=== PATIENT | female | born 1960 | race Caucasian/White ===

== ENCOUNTER → 2016-07-13 | Outpatient (CLI) | payer BC ==
--- NOTE | 2016-07-14 11:52 | MM ---
Reason for exam: screening (asymptomatic). Last mammogram was performed 1 year and 8 months ago. History: Patient is postmenopausal. Family history of breast cancer in grandmother. Benign excisional biopsy of the right breast. Physical Findings: A clinical breast exam by your physician is recommended on an annual basis and results should be correlated with mammographic findings. MG 3D Screening Mammo W/Cad Bilateral CC and MLO view(s) were taken. Prior study comparison: November 01, 2014, right breast MG work up mamm w CAD RT. October 30, 2014, bilateral MG screening mammo w CAD. The breast tissue is heterogeneously dense. This may lower the sensitivity of mammography. There is chronic nodularity. There is no dominant lesion. No significant changes when compared with prior studies. ASSESSMENT: Benign, BI-RAD 2 RECOMMENDATION: Routine screening mammogram of both breasts in 1 year.
== END | disposition home or self-care (01) ==
LOC: RADMAMWWP 16:36
PROVIDERS: ATTEND Obstetrics & Gynecology
DX: Z12.31 Encounter for screening mammogram for malignant neoplasm of breast (principal)
CPT/HCPCS: 77063; G0202

== ENCOUNTER → 2017-12-16 | Outpatient (CLI) | payer BC | END | disposition home or self-care (01) | LOC: LABWHC1 09:56 | PROVIDERS: ATTEND Internal Medicine Cardiovascular Disease | DX: R00.2 Palpitations (principal) | CPT/HCPCS: 36415; 84443 ==

== ENCOUNTER → 2018-05-10 | Outpatient (CLI) | payer BC ==
--- NOTE | 2018-05-11 11:03 | MM ---
Reason for exam: screening (asymptomatic). Last mammogram was performed 1 year and 10 months ago. History: Patient is postmenopausal. Family history of breast cancer in grandmother. Benign excisional biopsy of the right breast. Physical Findings: A clinical breast exam by your physician is recommended on an annual basis and results should be correlated with mammographic findings. MG 3D Screening Mammo W/Cad Bilateral CC and MLO view(s) were taken. Prior study comparison: July 13, 2016, bilateral MG 3d screening mammo w/cad. November 01, 2014, right breast MG work up mamm w CAD RT. The breast tissue is heterogeneously dense. This may lower the sensitivity of mammography. There is no discrete abnormality. No significant changes when compared with prior studies. ASSESSMENT: Negative, BI-RAD 1 RECOMMENDATION: Routine screening mammogram of both breasts in 1 year.
== END ==
LOC: RADMAMWWP 11:17
PROVIDERS: ATTEND Obstetrics & Gynecology
DX: Z12.31 Encounter for screening mammogram for malignant neoplasm of breast (principal)
CPT/HCPCS: 77063; 77067

== ENCOUNTER → 2018-05-18 | Outpatient (CLI) | payer BC | LOC: LABWHC1 10:25 | PROVIDERS: ATTEND Otolaryngology | DX: J30.89 Other allergic rhinitis (principal) | CPT/HCPCS: 36415 ==

== ENCOUNTER → 2018-06-16 | Outpatient (CLI) | payer BC ==
--- NOTE | 2018-06-16 15:57 | PN ---
PROGRESS NOTE DATE OF SERVICE: 06/16/2018 57-year-old lady who has [facility] of severe obstructive sleep apnea-hypopnea syndrome. The patient continued to use her CPAP equipment every night for the whole night basically without significant problems. After she was started on treatment with CPAP, she does not have any more headaches nor episodes of acid reflux while she is in bed, which she has had a significant level before treatment on CPAP. [place] Sleepiness Scale today is 5, which is normal. I checked the patient's CPAP unit. CPAP pressure is 17 cm of water. The patient does not have any problem with tolerating pressure. Usage is every night more than 4 hours, average usage is 7.8 hours. Quite high leak 38 L/minute, but at the same time, absolutely normal apnea-hypopnea index from the 0.6. Recently, patient was found to have significant amount of PVC, but cardiac testing including EKG, stress test was negative for any significant abnormalities. MEDICATIONS: Esomeprazole, Venlafaxine, amlodipine, losartan, levothyroxine, metoprolol, losartan, hydrochlorothiazide, pravastatin, vitamin D3. PHYSICAL EXAM: lady without distress. BP 167/82, HR 80, RR 16, height 5 feet and 0, weight 247 pounds. Body mass index 48.2. The patient weight he is 2 pounds more than during the previous visit. Temperature 98.3. Oxygen saturation in room air 96%. Oropharynx: Small oropharyngeal air space Mallampati 3. Neck Supple, no JVD. Thyroid is not palpable. LUNGS Clear to percussion and to auscultation. Good air exchange. No wheezing or rhonchi. HEART S1, S2 regular. No murmurs, gallops, or rubs. ABDOMEN: Obese. Soft and nontender. Bowel sounds are present. No organomegaly appreciated. EXTREMITIES No clubbing or cyanosis. EQUIPMENT OPERAT0R Awake, alert, and oriented X3. Cranial nerves 2 to 7 intact. There is no fasciculation or atrophy. noted. No focal deficits observed. IMPRESSION: 1. Severe obstructive sleep apnea-hypopnea syndrome on full control with CPAP. The patient demonstrated 100% compliance with treatment benefitting from treatment. 2. Hypertension. 3. History of premature ventricular contractions. 4. History of acid reflux. 5. Hyperlipidemia. 6. History of headaches in the past before starting to use CPAP. 7. History of fibromyalgia. 8. Status post cholecystectomy. 9. History of carpal tunnel syndrome, status post surgical treatment on the left side. PLAN: 1. Patient will continue to use CPAP equipment every night for the whole night. 2. Losing weight. 3. Sleep hygiene with regular time in bed for at least 8 hours. 4. We will maintain all necessary prescriptions for CPAP supplies including mask, tube, filters. 5. Losing weight. 6. Followup visit in 1 year. Thank you very much for allowing me to participate in the management of your patient. Sincerely, Venkata Clay MD, PhD, FAASM Diplomat of [place] [employer] [place] [employer] Speech Scientist of [facility] [place] MMODL / RAFAN: [id number] /
== END ==
LOC: SLEEP 13:48
PROVIDERS: ATTEND Internal Medicine
DX: G47.33 Obstructive sleep apnea (adult) (pediatric) (principal); I10 Essential (primary) hypertension; K21.9 Gastro-esophageal reflux disease without esophagitis; E78.5 Hyperlipidemia, unspecified; R51 Headache; M79.7 Fibromyalgia; I49.3 Ventricular premature depolarization; Z90.49 Acquired absence of other specified parts of digestive tract; Z98.890 Other specified postprocedural states; Z99.89 Dependence on other enabling machines and devices; Z79.899 Other long term (current) drug therapy

== ENCOUNTER → 2018-07-13 | Outpatient (CLI) | payer BC ==
[2018-07-13 13:35] LABS: Basophils # (A) 0.1 k/uL (0-0.2); Basophils % (A) 1 %; Eosinophils # (A) 0.4 k/uL (0-0.7); Eosinophils % (A) 4 %; HCT 39.7 % (34.0-46.0); HGB 12.2 gm/dL (11.4-16.0); Hypochromasia Moderate; Lymphocytes # (A) 2.2 k/uL (1.0-4.8); Lymphocytes % (A) 24 %; MCH 25.2 pg (25.0-35.0); MCHC 30.8 g/dL (31.0-37.0); MCV 81.8 fL (80.0-100.0); Mean Platelet Volume 8.4; Monocytes # (A) 0.4 k/uL (0-1.0); Monocytes % (A) 4 %; Neutrophils % (A) 66 %; Platelet Count 373 k/uL (150-450); RBC 4.85 m/uL (3.80-5.40); RDW 15.7 % (11.5-15.5); WBC 9.1 k/uL (3.8-10.6)
== END | disposition home or self-care (01) ==
LOC: LABWHC1 11:18
PROVIDERS: ATTEND Obstetrics & Gynecology
DX: Z01.812 Encounter for preprocedural laboratory examination (principal)
CPT/HCPCS: 36415; 85025

== ENCOUNTER 2018-07-18 06:57 | Day surgery (SDC) | payer BC ==
[2018-06-07 10:17] VITALS: BMI 47.8
[~2018-07-18 06:57] MED LIST: DEXAMETHASONE SOD PHOSPHATE 10 MG/ML 1 ML VIAL IV ONE; HYDROmorphone 0.5 MG/0.5 ML SYRINGE IVP PRN; LACTATED RINGERS 1,000 ML IV SCH; LIDOCAINE 1% 20 ML VIAL (10MG/ML) FOR IV START INTRADERMA PRN; MIDAZOLAM (PF) 2 MG/2 ML VIAL IV PRN; ONDANSETRON 4 MG/2 ML VIAL IVP ONE; Pre Op ABX Message 1 EACH MISC MISCELLANE ONE; SCOPOLAMINE 1.5MG/72HR PATCH TRANSDERM ONE
[2018-07-18 07:42] LABS: Glucose,Whole Blood 108 mg/dL (75-99)
--- NOTE | 2018-07-18 07:44 | P.HPOB ---
History of Present Illness H&P Date: 07/18/18 Chief Complaint: Postmenopausal bleeding 57 year old presents for D&C hysteroscopy for postmenopausal bleeding. Review of Systems All systems: negative Constitutional: Denies chills, Denies fever Eyes: denies blurred vision, denies pain Ears, nose, mouth and throat: Denies headache, Denies sore throat Cardiovascular: Denies chest pain, Denies shortness of breath Respiratory: Denies cough Gastrointestinal: Denies abdominal pain, Denies diarrhea, Denies nausea, Denies vomiting Genitourinary: Denies dysuria, Denies hematuria Musculoskeletal: Denies myalgias Integumentary: Denies pruritus, Denies rash Neurological: Denies numbness, Denies weakness Psychiatric: Denies anxiety, Denies depression Endocrine: Denies fatigue, Denies weight change Past Medical History Past Medical History: GERD/Reflux, Hyperlipidemia, Hypertension, Osteoarthritis (OA), Skin Disorder, Sleep Apnea/CPAP/BIPAP Additional Past Medical History / Comment(s): Hx migraines, PVC's. Getting over flu, got it 3 weeks ago, still has little bit of a cough. History of Any Multi-Drug Resistant Organisms: None Reported Past Surgical History: Breast Surgery, Section, Cholecystectomy Additional Past Surgical History / Comment(s): Left carpal tunnel, trigger finger and cyst removed, sinus surgery, lipoma removed from shoulder, EGD, colonoscopy. Past Anesthesia/Blood Transfusion Reactions: Previous Problems w/ Anesthesia, Family History of Problems w/ Anesthesia, Motion Sickness Additional Past Anesthesia/Blood Transfusion Reaction / Comment(s): Mother di fficulty waking up, pt during previous EGD got panicky when throat sprayed, got gaggy and coughing and aspirated and had eye "hemorrhage" after that. Aspirated during lipoma removal. Smoking Status: Former smoker - Past Family History Mother Family Medical History: Cancer Additional Family Medical History / Comment(s): Uterine cancer. Medications and Allergies Home Medications Medication Instructions Recorded Confirmed Type Esomeprazole Magnesium [NexIUM] 40 mg PO BID 09/07/13 07/18/18 History Losartan/Hydrochlorothiazide 1 each PO HS 09/07/13 07/18/18 History [Losartan-Hctz 100-12.5 mg Tab] Metoprolol Succinate (ER) [Toprol 25 mg PO HS 06/07/18 07/18/18 History Xl] Pravastatin Sodium [Pravachol] 10 mg PO MOWEFR 06/07/18 07/18/18 History Q Science Vitamin Pack 1 dose PO BID 06/07/18 07/18/18 History Venlafaxine HCl ER [Effexor Xr] 75 mg PO QAM 06/07/18 07/18/18 History Vitamin D [place] 6 sprays PO DAILY 06/07/18 07/18/18 History Allergies Allergy/AdvReac Type Severity Reaction Status Date / Time No Known Allergies Allergy Verified 07/18/18 07:13 Exam Osteopathic Statement: *. No significant issues noted on an osteopathic stru ctural exam other than those noted in the History and Physical/Consult. Vital Signs Temp Pulse Resp BP Pulse Ox 07/18/18 07:36 97.2 F L 89 16 186/89 98 Heart: Regular rate and rhythm Lungs: Clear to auscultation bilaterally Abdomen: Soft, nontender Extremities: Negative Homans sign Assessment and Plan (1) Postmenopausal bleeding Current Visit: Yes Status: Acute Code(s): N95.0 - POSTMENOPAUSAL BLEEDING SNOMED Code(s): 42644665 Plan: D&C, hysteroscopy
[2018-07-18] MEDS ORDERED: fentaNYL (PF) 50 MCG/ML 2 ML AMP ONE (07:57)
[2018-07-18] MEDS ORDERED: PROPOFOL 10 MG/ML 20 ML VIAL IV ONE (07:57)
[2018-07-18] MEDS ORDERED: MIDAZOLAM 2 MG/2 ML VIAL ONE (07:57)
[2018-07-18] MEDS ORDERED: SUCCINYLCHOLINE CHLORIDE 100 MG/5 ML SYR IV ONE (07:57)
[2018-07-18] MEDS ORDERED: LIDOCAINE 1% INJ 10MG/ML (20 ML MDV) ONE (07:57)
[2018-07-18] MEDS ORDERED: GLYCOPYRROLATE 0.2 MG/ML 2 ML VIAL ONE (07:57)
[2018-07-18] MEDS ORDERED: KETOROLAC 30 MG/ML 1 ML VIAL ONE (07:57)
[2018-07-18 08:00] LABS: Potassium 4.1 mmol/L (3.5-5.1)
--- NOTE | 2018-07-18 08:39 | P.OP ---
Date of Procedure: 07/18/18 Preoperative Diagnosis: 1. Postmenopausal bleeding Postoperative Diagnosis: 1. Postmenopausal bleeding Procedure(s) Performed: D&C, hysteroscopy Anesthesia: RADHAA Surgeon: Shagufta Anderson Estimated Blood Loss (ml): 1 Urine output (ml): 75 Pathology: other (Endometrial curettings) Condition: stable Disposition: PACU Operative Findings: Atrophic endometrium noted, both ostia visualized with hysteroscopy, minimal tissue extracted with D&C. Uterus sounded to 8.5 cm Description of Procedure: Patient was taken the operating room where general anesthesia was obtained without difficulty. She was prepped and draped in normal sterile fashion dorsal lithotomy position, legs placed in the candy cane stirrups. Bladder was drained of all urine. Weighted speculum placed in the vagina and the anterior lip the cervix was grasped with serial tooth tenaculum. The uterus sounded to 8.5 cm. The cervix was dilated to #8 Hegar dilator. Hysteroscopy was then performed. Both ostia were visualized and there was a smooth contour of the uterus. There was minimal to no endometrial tissue seen. Sharp curet was then gently used to obtain endometrial curettings. All instruments removed from the vagina. Patient tolerated the procedure well, sponge and instrument counts were correct 2 and she was taken to recovery in stable condition.
[2018-07-18 08:46] VITALS: TEMP 97.1
[2018-07-18 08:53] VITALS: RESP 16
[2018-07-18 10:36] VITALS: BP 141/76; PULSE 81
== END 2018-07-18 11:11 | disposition home or self-care (01) ==
LOC: OR 06:57
PROVIDERS: ATTEND Obstetrics & Gynecology
DX: N84.0 Polyp of corpus uteri (principal); N95.0 Postmenopausal bleeding; E78.5 Hyperlipidemia, unspecified; I10 Essential (primary) hypertension; K21.9 Gastro-esophageal reflux disease without esophagitis; M19.90 Unspecified osteoarthritis, unspecified site; Z87.891 Personal history of nicotine dependence; G47.33 Obstructive sleep apnea (adult) (pediatric); Z79.899 Other long term (current) drug therapy
CPT/HCPCS: 93005; 88305; 80051; 58558; J2250; J1100; J2405; J2001; J3010; J1885; J0330; J2704